=== PATIENT | female | born 1970 | race Native Hawaiian/Other Pacific Islander ===

== ENCOUNTER 2017-08-24 15:47 | Outpatient (CLI) | payer OTHER | END 2017-08-24 16:50 | disposition home or self-care (01) | LOC: RAD 15:47 | DX: M54.6 Pain in thoracic spine (principal); M54.5 Low back pain ==

== ENCOUNTER 2018-01-08 13:32 | Outpatient (CLI) | payer OTHER | END 2018-01-08 20:35 | disposition home or self-care (01) | LOC: MRI 13:32 | DX: M25.521 Pain in right elbow (principal) ==

== ENCOUNTER 2018-06-15 14:07 | Outpatient (CLI) | payer OTHER | END 2018-06-15 20:50 | disposition home or self-care (01) | LOC: RAD 14:07 | DX: M54.6 Pain in thoracic spine (principal) ==

== ENCOUNTER 2019-02-11 14:28 | Emergency (ER) | payer OTHER ==
[~2019-02-11] VITALS: Ht 168.9 cm; Wt 79.4 kg
[2019-02-11 16:19] VITALS: BP 126/76; TEMP 98.1
== END 2019-02-11 16:20 | disposition home or self-care (01) ==
LOC: ED 14:28
DX: S80.01XA Contusion of right knee, initial encounter (principal); S80.211A Abrasion, right knee, initial encounter; W01.0XXA Fall on same level from slipping, tripping and stumbling without subsequent striking against object, initial encounter; Y92.481 Parking lot as the place of occurrence of the external cause
CPT/HCPCS: 90471; 90715; 99282; 99283

== ENCOUNTER 2019-02-22 15:41 | Outpatient (CLI) | payer OTHER | END 2019-02-22 22:04 | disposition home or self-care (01) | LOC: MAMMO 15:41 | DX: Z12.31 Encounter for screening mammogram for malignant neoplasm of breast (principal) ==

== ENCOUNTER 2020-01-21 15:31 | Outpatient (CLI) | payer OTHER | END 2020-01-21 23:34 | disposition home or self-care (01) | LOC: RAD 15:31 | DX: M54.6 Pain in thoracic spine (principal); R07.81 Pleurodynia; R07.1 Chest pain on breathing ==

== ENCOUNTER 2021-03-10 10:42 | Outpatient (CLI) | payer OTHER | END 2021-03-10 20:35 | disposition home or self-care (01) | LOC: RAD 10:42 | PROVIDERS: ATTEND Nurse Practitioner Family | DX: J40 Bronchitis, not specified as acute or chronic (principal) ==

== ENCOUNTER 2021-04-27 11:16 | Outpatient (CLI) | payer OTHER | END 2021-04-27 19:22 | disposition home or self-care (01) | LOC: RAD 11:16 | PROVIDERS: ATTEND Nurse Practitioner Family | DX: I10 Essential (primary) hypertension (principal); N39.0 Urinary tract infection, site not specified; R30.0 Dysuria; M54.9 Dorsalgia, unspecified; M25.551 Pain in right hip; M25.532 Pain in left wrist; Z86.69 Personal history of other diseases of the nervous system and sense organs; Z13.21 Encounter for screening for nutritional disorder; Z13.220 Encounter for screening for lipoid disorders; Z09 Encounter for follow-up examination after completed treatment for conditions other than malignant neoplasm ==

== ENCOUNTER 2021-05-11 08:58 | Outpatient (CLI) | payer OTHER | END 2021-05-11 18:55 | disposition home or self-care (01) | LOC: RAD 08:58 | PROVIDERS: ATTEND Nurse Practitioner Family | DX: Z13.820 Encounter for screening for osteoporosis (principal); M25.551 Pain in right hip; M25.532 Pain in left wrist; M43.06 Spondylolysis, lumbar region; N95.8 Other specified menopausal and perimenopausal disorders ==

== ENCOUNTER 2021-05-19 08:34 | Outpatient (CLI) | payer OTHER | END 2021-05-19 20:13 | disposition home or self-care (01) | LOC: MRI 08:34 | PROVIDERS: ATTEND Nurse Practitioner Family | DX: M54.16 Radiculopathy, lumbar region (principal); R20.2 Paresthesia of skin; M79.662 Pain in left lower leg; M79.661 Pain in right lower leg; M47.816 Spondylosis without myelopathy or radiculopathy, lumbar region; M25.551 Pain in right hip ==

== ENCOUNTER 2022-05-10 09:53 | Outpatient (CLI) | payer OTHER | END 2022-05-10 20:12 | disposition home or self-care (01) | LOC: MAMMO 09:53 | PROVIDERS: ATTEND Nurse Practitioner Family | DX: Z12.31 Encounter for screening mammogram for malignant neoplasm of breast (principal) ==

== ENCOUNTER 2022-06-06 08:08 | Outpatient (CLI) | payer OTHER | END 2022-06-06 18:51 | disposition home or self-care (01) | LOC: LABW 08:08 | PROVIDERS: ATTEND Specialist | DX: I10 Essential (primary) hypertension (principal) | CPT/HCPCS: 83835; 84585 ==

== ENCOUNTER 2022-06-08 13:45 | Outpatient (CLI) | payer OTHER | END 2022-06-08 20:15 | disposition home or self-care (01) | LOC: RESP 13:45 | PROVIDERS: ATTEND Specialist | DX: I10 Essential (primary) hypertension (principal); E78.2 Mixed hyperlipidemia; R07.89 Other chest pain; R00.2 Palpitations ==

== ENCOUNTER 2022-06-21 10:25 | Outpatient (CLI) | payer OTHER | END 2022-06-21 19:00 | disposition home or self-care (01) | LOC: RESP 10:25 | PROVIDERS: ATTEND Specialist | DX: I10 Essential (primary) hypertension (principal); E78.2 Mixed hyperlipidemia; R07.89 Other chest pain; R00.2 Palpitations ==

== ENCOUNTER 2023-01-17 08:26 | Outpatient (CLI) | payer OTHER | END 2023-01-17 20:08 | disposition home or self-care (01) | LOC: RAD 08:26 | PROVIDERS: ATTEND Nurse Practitioner Family | DX: R10.9 Unspecified abdominal pain (principal); R07.81 Pleurodynia ==